=== PATIENT | female | born 1985 | race Two or more races ===

== ENCOUNTER 2019-01-27 14:47 | Outpatient (CLI) | payer OTHER | END 2019-01-27 14:54 | disposition home or self-care (01) | LOC: RAD 501 14:47 | DX: M25.561 Pain in right knee (principal); M79.641 Pain in right hand; M79.642 Pain in left hand; M54.2 Cervicalgia ==

== ENCOUNTER 2019-01-28 08:33 | Outpatient (CLI) | payer OTHER | END 2019-01-28 08:37 | disposition home or self-care (01) | LOC: SONOGRAMA 08:33 | DX: M79.641 Pain in right hand (principal); M79.642 Pain in left hand ==

== ENCOUNTER 2019-06-14 11:28 | Outpatient (CLI) | payer OTHER | END 2019-06-14 15:33 | disposition home or self-care (01) | LOC: MAMO-SONO 11:28 | DX: Z12.31 Encounter for screening mammogram for malignant neoplasm of breast (principal); Z87.898 Personal history of other specified conditions; N60.02 Solitary cyst of left breast; N60.01 Solitary cyst of right breast ==

== ENCOUNTER 2019-06-21 08:53 | Outpatient (CLI) | payer OTHER | END 2019-06-21 09:01 | disposition home or self-care (01) | LOC: RAD 08:53 | DX: M54.5 Low back pain (principal); M54.6 Pain in thoracic spine; M54.2 Cervicalgia ==

== ENCOUNTER 2019-10-03 09:54 | Emergency (ER) | payer OTHER ==
[~2019-10-03] VITALS: Ht 172.7 cm; Wt 73.9 kg
== END 2019-10-03 14:10 | disposition home or self-care (01) ==
LOC: ER 09:54
DX: J11.1 Influenza due to unidentified influenza virus with other respiratory manifestations (principal)

== ENCOUNTER 2020-08-29 14:55 | Outpatient (CLI) | payer OTHER | END 2020-08-29 15:16 | disposition home or self-care (01) | LOC: SONOGRAMA 14:55 | DX: N64.59 Other signs and symptoms in breast (principal); Z00.00 Encounter for general adult medical examination without abnormal findings ==